=== PATIENT | male | born 1975 | race Caucasian/White ===

== ENCOUNTER 2019-05-08 14:44 | Observation (INO) | payer OTHER ==
[2019-05-08] MEDS ORDERED: MORPHINE SULFATE 4 MG/ML SYRINGE IV STA (15:02)
[2019-05-08] MEDS ORDERED: SODIUM CHLORIDE 0.9% 1,000 ML IV STA (15:02)
--- NOTE | 2019-05-08 15:05 | ED ---
Chest Pain HPI - General Chief Complaint: Chest Pain Stated Complaint: chest pain Time Seen by Provider: 05/08/19 14:53 Source: patient, RN notes reviewed, old records reviewed Mode of arrival: wheelchair Limitations: no limitations - History of Present Illness Initial Comments: This is a 44-year-old male to the ER for evaluation patient presents today for evaluation regards to chest pain left-sided chest pain. Patient has history of prior AK history of high cholesterol history of smoking. Strong family family history of heart disease. Patient does take blood pressure medication that I swelling over the lower extremity. No recent travel history sick contacts. Significant shortness of breath especially with exertion MD Complaint: chest pain (L side, L shoulder) -: days(s) Onset: during rest Pain Location: left chest Pain Radiation: LUE Severity: mild Severity scale (1-10): 3 Quality: aching Consistency: intermittent Improves With: nothing Worsens With: exertion, inspiration Anginal Symptoms: diaphoresis, dyspnea Treatments Prior to Arrival: none - Related Data Home Medications Medication Instructions Recorded Confirmed Albuterol Sulfate [Proair Hfa] 2 puff INHALATION RT-Q6H PRN 05/08/19 05/08/19 Atorvastatin [Lipitor] 40 mg PO HS 05/08/19 05/08/19 Baclofen [Lioresal] 10 mg PO HS PRN 05/08/19 05/08/19 Cholecalciferol (Vitamin D3) 2,000 unit PO HS 05/08/19 05/08/19 [Vitamin D3] Elviteg/Cob/Emtri/Tenof Alafen 1 tab PO HS 05/08/19 05/08/19 [Genvoya Tablet] Furosemide [Lasix] 40 mg PO DAILY 05/08/19 05/08/19 Gabapentin 800 mg PO HS 05/08/19 05/08/19 Gemfibrozil [Lopid] 600 mg PO HS 05/08/19 05/08/19 Ibuprofen [Motrin] 800 mg PO TID PRN 05/08/19 05/08/19 LORazepam [Ativan] 1 mg PO HS 05/08/19 05/08/19 Loratadine 10 mg PO DAILY PRN 05/08/19 05/08/19 Morphine Sulfate [Ms Contin] 120 mg PO HS 05/08/19 05/08/19 [employer] Fatty Acids/Fish Oil [Fish 1 cap PO HS 05/08/19 05/08/19 Oil 1,000 mg Softgel] Omeprazole 40 mg PO QAM 05/08/19 05/08/19 QUEtiapine [SEROquel] 100 mg PO HS 05/08/19 05/08/19 QUEtiapine [SEROquel] 400 mg PO HS 05/08/19 05/08/19 Ranitidine HCl 150 mg PO HS PRN 05/08/19 05/08/19 Sucralfate [Carafate] 1 gm PO DAILY PRN 05/08/19 05/08/19 Sulfamethox-Tmp 800-160Mg [Bactrim 1 tab PO Q12HR PRN 05/08/19 05/08/19 DS 800-160 mg] Varenicline [Chantix Starter Pack] 0.5 mg PO BID 05/08/19 05/08/19 traZODone HCL 300 mg PO HS 05/08/19 05/08/19 Allergies Allergy/AdvReac Type Severity Reaction Status Date / Time bee venom protein (honey bee) Allergy Anaphylaxis Verified 05/08/19 15:43 vancomycin Allergy Rash/Hives Verified 05/08/19 15:43 naloxegol [From Movantik] AdvReac Nausea & Verified 05/08/19 15:43 Vomiting & Diarrhea Review of Systems ROS Statement: Those systems with pertinent positive or pertinent negative responses have been documented in the HPI. ROS Other: All systems not noted in ROS Statement are negative. EKG Findings - EKG Comments: EKG Findings:: EKG shows sinus rhythm rate of 91, VA 162, QRS 90, QTc 460 Past Medical History Past Medical History: Coronary Artery Disease (CAD), Cancer, COPD, Myocardial Infarction ([place]) Additional Past Medical History / Comment(s): HIV, testicle cancer History of Any Multi-Drug Resistant Organisms: MRSA Date of last positivie culture/infection: 2008 MDRO Source:: groin Past Surgical History: Back Surgery, Heart Catheterization, Orthopedic Surgery Additional Past Surgical History / Comment(s): rt knee, lt testicle removed. Past Psychological History: Bipolar, PTSD Smoking Status: Current every day smoker Past Alcohol Use History: None Reported Past Drug Use History: None Reported General Exam Limitations: no limitations General appearance: alert, in no apparent distress, anxious Head exam: Present: atraumatic, normocephalic, normal inspection Eye exam: Present: normal appearance, PERRL, EOMI. Absent: scleral icterus, conjunctival injection, periorbital swelling ENT exam: Present: normal exam, mucous membranes moist Neck exam: Present: normal inspection. Absent: tenderness, meningismus, lymphadenopathy Respiratory exam: Present: normal lung sounds bilaterally. Absent: respiratory distress, wheezes, rales, rhonchi, stridor Cardiovascular Exam: Present: regular rate, normal rhythm, normal heart sounds. Absent: systolic murmur, diastolic murmur, rubs, gallop, clicks GI/Abdominal exam: Present: soft, normal bowel sounds. Absent: distended, tenderness, guarding, rebound, rigid Extremities exam: Present: normal inspection, full ROM, normal capillary refill. Absent: tenderness, pedal edema, joint swelling, calf tenderness Back exam: Present: normal inspection Neurological exam: Present: alert, oriented X3, CN II-XII intact Psychiatric exam: Present: normal affect, normal mood Skin exam: Present: warm, dry, intact, normal color. Absent: rash Course Vital Signs 05/08/19 05/08/19 14:46 16:26 Temperature 98.3 F Pulse Rate 90 75 Respiratory 20 18 Rate Blood Pressure 138/86 109/73 O2 Sat by Pulse 99 95 Oximetry - Reevaluation(s) Reevaluation #1: 05/08/19 16:44 Medical records reviewed Reevaluation #2: 05/08/19 16:44 Still with chest pain - Consultations Consultation #1: Spoke with Dr. Styles regarding admission, he is agreeable Chest Pain MDM - MDM 44 male the ER for chest pain history of heart disease history of AK and AK in his father as well as history of high cholesterol high blood pressure. Patient be admitted for cardiac observation Critical Care Time Critical Care Time: Yes Total Critical Care Time: 31 Disposition Clinical Impression: Chest pain Disposition: ADMITTED IP TO THIS HOSP Condition: Undetermined Instructions (If sedation given, give patient instructions): Chest Pain (ED) Is patient prescribed a controlled substance at d/c from ED?: No Referrals: Nelida Robles NPC [Primary Care Provider] - 1-2 days
[2019-05-08 15:27] LABS: Basophils # (A) 0.1 k/uL (0-0.2); Basophils % (A) 1 %; Eosinophils # (A) 0.1 k/uL (0-0.7); Eosinophils % (A) 1 %; HCT 43.8 % (39.0-53.0); HGB 14.3 gm/dL (13.0-17.5); Lymphocytes # (A) 3.6 k/uL (1.0-4.8); Lymphocytes % (A) 34 %; MCH 30.9 pg (25.0-35.0); MCHC 32.6 g/dL (31.0-37.0); Mean Platelet Volume 6.4; Monocytes # (A) 0.4 k/uL (0-1.0); Monocytes % (A) 4 %; Neutrophils % (A) 57 %; Platelet Count 272 k/uL (150-450); RBC 4.61 m/uL (4.30-5.90); RDW 12.1 % (11.5-15.5); WBC 10.5 k/uL (3.8-10.6)
[2019-05-08 15:35] LABS: ALT 27 U/L (21-72); AST 22 U/L (17-59); African American GFR (CKD) >90 (>60 ml/min/1.73 sqM); Albumin 4.4 g/dL (3.5-5.0); Alkaline Phosphatase 100 U/L (38-126); Anion Gap 10 mmol/L; Blood Urea Nitrogen 13 mg/dL (9-20); Calcium 9.5 mg/dL (8.4-10.2); Carbon Dioxide 28 mmol/L (22-30); Chloride 101 mmol/L (98-107); Glucose 103 mg/dL (74-99); Potassium 3.7 mmol/L (3.5-5.1); Sodium 139 mmol/L (137-145); Total Bilirubin 0.4 mg/dL (0.2-1.3); Total Protein 7.4 g/dL (6.3-8.2)
[2019-05-08 15:40] LABS: D-Dimer 0.43 mg/L FEU (<0.60); INR 0.9 (<1.2); Partial Thromboplastin Time 25.2 sec (22.0-30.0); Prothrombin Time 9.7 sec (9.0-12.0)
--- NOTE | 2019-05-08 15:52 | XR ---
EXAMINATION TYPE: XR chest 2V DATE OF EXAM: 05/08/2019 COMPARISON: NONE HISTORY: Chest pain TECHNIQUE: Frontal and lateral views of the chest are obtained. FINDINGS: There is no focal air space opacity, pleural effusion, or pneumothorax seen. Slight pulmo nary hyperinflation could relate to underlying COPD. Correlate with pulmonary function tests. The car diac silhouette size is within normal limits. The osseous structures are intact. IMPRESSION: No acute cardiopulmonary process.
[2019-05-08] MEDS ORDERED: ASPIRIN 81 MG PO STA (16:43)
[2019-05-08] MEDS ORDERED: HEPARIN SODIUM,PORCINE 5,000 UNIT/ML 1 ML VIAL IV PRN (16:43)
[2019-05-08] MEDS ORDERED: NITROGLYCERIN SL TABS 0.4 MG TAB SUBLINGUAL PRN (16:43)
[2019-05-08] MEDS ORDERED: HEPARIN SODIUM,PORCINE 5,000 UNIT/ML 1 ML VIAL IV ONE (16:43)
[2019-05-08] MEDS ORDERED: HEPARIN SOD,PORK IN 0.45% NACL 25,000 UNIT in 0.45% NACL 1 250ML.BAG IV SCH (16:45)
[2019-05-08] MEDS ORDERED: MORPHINE SULFATE 4 MG/ML SYRINGE IVP STA (17:21)
[2019-05-08] MEDS: MORPHINE SULFATE 4 MG/ML SYRINGE IVP PRN (21:47)
[2019-05-08] MEDS ORDERED: ALBUTEROL NEBULIZED 2.5 MG/3 ML INHALATION PRN (22:06)
[2019-05-08] MEDS ORDERED: SULFAMETHOX-TMP 800-160MG 1 EACH TAB PO PRN (22:06)
[2019-05-08] MEDS ORDERED: FAMOTIDINE 20 MG TAB PO PRN (22:06)
[2019-05-08] MEDS ORDERED: SUCRALFATE 1 GM TAB PO PRN (22:06)
[2019-05-08] MEDS ORDERED: IBUPROFEN 800 MG TAB PO PRN (22:06)
[2019-05-08] MEDS ORDERED: LORATADINE 10 MG TAB PO PRN (22:06)
[2019-05-08] MEDS ORDERED: BACLOFEN 10 MG TAB PO PRN (22:06)
--- NOTE | 2019-05-08 22:51 | HP ---
HISTORY AND PHYSICAL CHIEF COMPLAINT: Chest pain. HISTORY OF PRESENT ILLNESS: This 44-year-old gentleman with a past medical history of multiple medical problems, including CAD at the age of 32, had a cardiac catheterization in [place], history of CHF, COPD, hyperlipidemia, history of myocardial infarction, history of HIV, testicular cancer, history of neuropathy, history of MRSA, history of cardiac catheterization, history of bipolar, PTSD, history of nicotine dependence, being followed by a primary physician and Nelida Robles in the outpatient setting, was having chest pains in the anterior part of the chest which were radiating to the left shoulder as well as left arm, and the patient came to [facility] and was admitted for further evaluation and treatment. EKG showed some ST-T changes. Otherwise, there is no history of any radiation of the pain elsewhere. No history of associated symptoms except some shortness of breath with exertion. The patient also has a history of hypercholesteremia, indicating possibly familial hypercholesterolemia. Patient has extensive family history of coronary artery disease, also. There is no history of any fever, rigor or chills at this time. PAST MEDICAL HISTORY: 1. CAD. 2. History of CHF. 3. COPD. 4. Myocardial infarction. 5. HIV. 6. Testicular cancer. 7. History of neuropathy. HOME MEDICATIONS: 1. MS Contin 120 mg each morning. 2. Ranitidine 150 mg at bedtime p.r.n. 3. Omeprazole 40 mg each morning. 4. Fish oil at bedtime. 5. Motrin 800 mg t.i.d. p.r.n. 6. Lasix 40 mg p.o. daily. 7. Lioresal 10 mg at bedtime p.r.n. 8. ProAir 2 puffs q.6 p.r.n. 9. Trazodone 300 mg p.o. at bedtime. 10.Genvoya 1 tablet p.o. at bedtime. 11.Vitamin D3 2000 at bedtime. 12.Bactrim DS one p.o. b.i.d. 13.Carafate 1 gram daily p.r.n. 14.Seroquel 400 mg at bedtime. 15.Seroquel 100 mg at bedtime. 16.Loratadine 10 mg daily p.r.n. 17.Ativan 1 mg at bedtime. 18.Chantix 0.5 mg b.i.d. 19.Lopid 600 mg at bedtime. 20.Gabapentin 400 mg at bedtime. 21.Lipitor 40 mg at bedtime. 22.MS-IR. ALLERGIES: 1. BEE VENOM. 2. VANCOMYCIN. 3. NALOXEGOL. SOCIAL HISTORY: History of smoking. No history of alcohol intake. FAMILY HISTORY: History of CHF, CAD, CVA, TIA. REVIEW OF SYSTEMS: ENT: No diminished hearing. No diminished vision. CARDIOVASCULAR SYSTEM: As mentioned earlier. RESPIRATORY SYSTEM: As mentioned earlier. GI: No nausea, vomiting. : No dysuria or retention. NERVOUS SYSTEM: No numbness, weakness. ALLERGY/IMMUNOLOGY: No asthma, hayfever. MUSCULOSKELETAL: As mentioned earlier. HEMATOLOGY/ONCOLOGY: As mentioned earlier. ENDOCRINE: No history of diabetes, hypothyroidism. CONSTITUTIONAL: As mentioned earlier. DERMATOLOGY: Negative. RHEUMATOLOGY: Negative. PSYCHIATRY: As mentioned earlier. PHYSICAL EXAMINATION: Patient alert and oriented x3. Pulse 70, blood pressure 119/76, respiration 18, temperature 98.3, pulse ox 97% on room air. HEENT: Conjunctivae normal. Oral mucosa moist. NECK: No jugular venous distention. No carotid bruit. No lymph node enlargement. CARDIOVASCULAR SYSTEM: S1, S2 muffled. No S3. No S4. RESPIRATORY SYSTEM: Breath sounds diminished at the bases. No rhonchi. No crackles. ABDOMEN: Soft, obese, non-tender. No mass palpable. LEGS: Minimal edema. NERVOUS SYSTEM: Higher functions as mentioned earlier. Moves all 4 limbs. No focal motor or sensory deficit. LYMPHATICS: No lymph node palpable in neck, axillae or groin. SKIN: No ulcer, rash, bleeding. JOINTS: No active deforming arthropathy. LABS: CBC within normal limits. APTT 33. Glucose is 103. ASSESSMENT: 1. Chest pain for evaluation. Rule out acute myocardial infarction or unstable angina. 2. History of myocardial infarction and cardiac catheterization in the past. 3. History of congestive heart failure; ejection fraction unknown. 4. History of chronic obstructive pulmonary disease. 5. Hyperlipidemia. 6. Myocardial infarction. 7. History of human immunodeficiency virus. 8. History of testicular cancer. 9. History of peripheral neuropathy. 10.History of methicillin-resistant Staphylococcus aeruginosa. 11.History of degenerative joint disease. 12.History of bipolar, post-traumatic stress disorder. 13.History of continued ongoing nicotine dependence. 14.Obesity with body mass index 37.2. RECOMMENDATIONS AND DISCUSSION: In this 44-year-old gentleman who presented with multiple medical issues, at this time I recommend to continue current medications, continue with symptomatic treatment. Otherwise, unstable angina protocol. Resume the home medications. Cardiology consultation. Two-D echo with Doppler. Guarded prognosis because of multiple complex medical issues. Lipid panel also will be checked. Prognosis guarded. Discussed with the patient, who understands and agrees. Further recommendations to follow. A copy of this dictation is being forwarded to Nelida Robles, who is following the patient in the outpatient setting. MMODL / IJN: [id number] /
[2019-05-08] MEDS ORDERED: Elviteg/Cob/Emtri/Tenof Alafen [Genvoya Tablet] PO SCH (23:16)
[2019-05-08] MEDS ORDERED: QUEtiapine 400 MG TAB PO SCH (23:18)
[2019-05-08] MEDS ORDERED: QUEtiapine 100 MG TAB PO SCH (23:18)
[2019-05-08] MEDS ORDERED: GABAPENTIN 400 MG CAP PO SCH (23:30)
[2019-05-08] MEDS ORDERED: traZODone HCL 100 MG TAB PO SCH (23:30)
[2019-05-08] MEDS ORDERED: LORazepam 1 MG TAB PO SCH (23:30)
[2019-05-08] MEDS ORDERED: FENOFIBRATE 160 MG TAB PO SCH (23:30)
[2019-05-08] MEDS: METOPROLOL TARTRATE 25 MG TAB PO SCH (23:42)
[2019-05-09 07:26] LABS: Basophils # (A) 0.1 k/uL (0-0.2); Basophils % (A) 1 %; Eosinophils # (A) 0.1 k/uL (0-0.7); Eosinophils % (A) 2 %; HCT 41.8 % (39.0-53.0); HGB 13.6 gm/dL (13.0-17.5); Lymphocytes # (A) 3.6 k/uL (1.0-4.8); Lymphocytes % (A) 52 %; MCHC 32.4 g/dL (31.0-37.0); MCV 95.5 fL (80.0-100.0); Mean Platelet Volume 6.4; Monocytes # (A) 0.4 k/uL (0-1.0); Monocytes % (A) 5 %; Neutrophils # (A) 2.5 k/uL (1.3-7.7); Neutrophils % (A) 36 %; Platelet Count 240 k/uL (150-450); RBC 4.38 m/uL (4.30-5.90); RDW 12.1 % (11.5-15.5); WBC 6.8 k/uL (3.8-10.6)
[2019-05-09] MEDS ORDERED: PANTOPRAZOLE 40 MG TABLET PO SCH (07:30)
[2019-05-09 07:50] LABS: African American GFR (CKD) >90 (>60 ml/min/1.73 sqM); Anion Gap 6 mmol/L; Blood Urea Nitrogen 13 mg/dL (9-20); Carbon Dioxide 23 mmol/L (22-30); Chloride 110 mmol/L (98-107); Cholesterol 154 mg/dL (<200); Glucose 87 mg/dL (74-99); HDL Cholesterol 29 mg/dL (40-60); LDL Cholesterol,Calculated 98 mg/dL (0-99); Potassium 4.4 mmol/L (3.5-5.1); Sodium 139 mmol/L (137-145); Triglycerides 135 mg/dL (<150)
[2019-05-09 07:53] VITALS: RESP 18
[2019-05-09] MEDS ORDERED: ATORVASTATIN 80 MG TAB PO SCH (09:00)
[2019-05-09] MEDS ORDERED: ASPIRIN 325 MG TAB PO SCH (09:00)
[2019-05-09] MEDS ORDERED: FUROSEMIDE 40 MG TAB PO SCH (09:00)
[2019-05-09] MEDS ORDERED: VARENICLINE 0.5 MG TAB PO SCH (09:00)
[2019-05-09] MEDS ORDERED: MORPHINE SULFATE ER 30 MG TABLET PO SCH (09:00)
--- NOTE | 2019-05-09 10:04 | P.CRDCN ---
History of Present Illness History of present illness: This is a 44-year-old male past medical history significant for coronary artery disease in the setting of an [facility] per the patient while living in [place] in 2007. He is unsure of the exact details and unsure if he has stents or how many. He also has HIV, COPD, history of testicular cancer, bipolar, PTSD, chronic pain and chronic nicotine dependence. 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 We have been asked to see him in consultation for chest pain. He states yesterday while driving his other to a Dr. appointment he started feeling a pain in his chest that felt like someone was pulling his body at his shoulders. There was no radiation to the arm, back, neck or jaw. He continues to have ongoing chest discomfort that has been constant since it started with no alleviating or aggravating factors. He also has intermittent shortness of breath, nausea and dizziness like the room is spinning. He has had vertigo in the past and states this feels different. EKG reveals sinus mechanism heart rate 91. Nonspecific changes. Chest x-ray negative for an acute cardiopulmonary process. Laboratory data reviewed, CBC unremarkable, d-dimer 0.43, sodium 139, potassium 4.4, creatinine 0.78, magnesium 2.0, cardiac enzymes negative 3, LDL 98. Current daily medications include atorvastatin 40 mg daily, Lopid 600 mg daily, Lasix 40 mg daily, morphine, ranitidine, omeprazole, Motrin, baclofen, albuterol, trazodone, gingival area, Bactrim, Carafate, Seroquel, loratadine, Ativan and gabapentin. At the time of my exam: CONSTITUTIONAL: Denies fever. Denies chills. EYES: Denies blurred vision. Denies vision changes. Denies eye pain. EARS, NOSE, MOUTH & THROAT: Denies headache. Denies sore throat. Denies ear pain. CARDIOVASCULAR: Complains of chest pain. Denies shortness of breath. Denies orthopnea. Denies PND. Denies palpitations. RESPIRATORY: Denies cough. GASTROINTESTINAL: Denies abdominal pain. Denies diarrhea. Denies constipation. Denies nausea. Denies vomiting. MUSCULOSKELETAL: Denies myalgias. INTEGUMENTARY: Denies pruitis. Denies rash. NEUROLOGIC: Denies numbness. Denies tingling. Denies weakness. PSYCHIATRIC: Denies anxiety. Denies depression. ENDOCRINE: Denies fatigue. Denies weight change. Denies polydipsia. Denies polyurina. GENITOURINARY: Denies burning, hematuria or urgency with micturation. HEMATOLOGIC: Denies history of anemia. Denies bleeding. Blood pressure 121/75 heart rate 70 afebrile maintaining oxygen saturation on room air GENERAL: This is a 44-year-old male in no apparent distress at the time of my examination. HEENT: Head is atraumatic, normocephalic. Pupils are equal, round. Sclerae anicteric. Conjunctivae are clear. Mucous membranes of the mouth are moist. Neck is supple. There is no jugular venous distention. No carotid bruit is heard. LUNGS: Clear to auscultation no wheezes, rales or rhonchi. No chest wall tenderness is noted on palpation or with deep breathing. HEART: Regular rate and rhythm without murmurs, rubs or gallops. S1 and S2 heard. ABDOMEN: Soft, nontender. Bowel sounds are heard. No organomegaly noted. EXTREMITIES: No evidence of peripheral edema and no calf tenderness noted. VASCULAR: Radial and dorsalis pedis pulses palpated, no evidence of clubbing. NEUROLOGIC: Patient is awake, alert and oriented x3. ASSESSMENT Chest pain, atypical for angina. An acute coronary event has been ruled out. Dyslipidemia HIV COPD Chronic nicotine dependence PLAN An acute coronary event has been ruled out. Echocardiogram has been obtained and will be reviewed. Proceed with stress echocardiogram to assess for stress induced ischemia. If stress test is normal he may be discharged from a cardiac perspective. Thank you kindly for this consultation. Nurse Practitioner note has been reviewed, I agree with a documented findings and plan of care. Patient was seen and examined. Past Medical History Past Medical History: Coronary Artery Disease (CAD), Cancer, Heart Failure, COPD, Hyperlipidemia, Myocardial Infarction ([place]) Additional Past Medical History / Comment(s): HIV, testicle cancer,NEUROPATHY Last Myocardial Infarction Date:: 2007 History of Any Multi-Drug Resistant Organisms: MRSA Date of last positivie culture/infection: 2008 MDRO Source:: groin Past Surgical History: Back Surgery, Heart Catheterization, Orthopedic Surgery Additional Past Surgical History / Comment(s): rt knee, lt testicle removed. Past Anesthesia/Blood Transfusion Reactions: No Reported Reaction Past Psychological History: Bipolar, PTSD Smoking Status: Current every day smoker Past Alcohol Use History: None Reported Past Drug Use History: None Reported - Past Family History Father Family Medical History: Congestive Heart Failure (CHF), Coronary Artery Disease (CAD), CVA/TIA Mother Family Medical History: Cancer, Congestive Heart Failure (CHF), Coronary Artery Disease (CAD) Medications and Allergies Home Medications Medication Instructions Recorded Confirmed Type Albuterol Sulfate [Proair Hfa] 2 puff INHALATION RT-Q6H PRN 05/08/19 05/08/19 History Atorvastatin [Lipitor] 40 mg PO HS 05/08/19 05/08/19 History Baclofen [Lioresal] 10 mg PO HS PRN 05/08/19 05/08/19 History Cholecalciferol (Vitamin D3) 2,000 unit PO HS 05/08/19 05/08/19 History [Vitamin D3] Elviteg/Cob/Emtri/Tenof Alafen 1 tab PO HS 05/08/19 05/08/19 History [Genvoya Tablet] Furosemide [Lasix] 40 mg PO DAILY 05/08/19 05/08/19 History Gabapentin 800 mg PO HS 05/08/19 05/08/19 History Gemfibrozil [Lopid] 600 mg PO HS 05/08/19 05/08/19 History Ibuprofen [Motrin] 800 mg PO TID PRN 05/08/19 05/08/19 History LORazepam [Ativan] 1 mg PO HS 05/08/19 05/08/19 History Loratadine 10 mg PO DAILY PRN 05/08/19 05/08/19 History Morphine Sulfate Ir [MSIR] 120 mg PO DAILY 05/08/19 05/08/19 History [employer]-3 Fatty Acids/Fish Oil [Fish 1 cap PO HS 05/08/19 05/08/19 History Oil 1,000 mg Softgel] Omeprazole 40 mg PO QAM 05/08/19 05/08/19 History QUEtiapine [SEROquel] 100 mg PO HS 05/08/19 05/08/19 History QUEtiapine [SEROquel] 400 mg PO HS 05/08/19 05/08/19 History Ranitidine HCl 150 mg PO HS PRN 05/08/19 05/08/19 History Sucralfate [Carafate] 1 gm PO DAILY PRN 05/08/19 05/08/19 History Sulfamethox-Tmp 800-160Mg [Bactrim 1 tab PO Q12HR PRN 05/08/19 05/08/19 History DS 800-160 mg] Varenicline [Chantix Starter Pack] 0.5 mg PO BID 05/08/19 05/08/19 History traZODone HCL 300 mg PO HS 05/08/19 05/08/19 History Allergies Allergy/AdvReac Type Severity Reaction Status Date / Time bee venom protein (honey bee) Allergy Anaphylaxis Verified 05/08/19 15:43 vancomycin Allergy Rash/Hives Verified 05/08/19 15:43 naloxegol [From Movantik] AdvReac Nausea & Verified 05/08/19 15:43 Vomiting & Diarrhea Physical Exam Vitals: Vital Signs Temp Pulse Pulse Resp BP BP Pulse Ox 05/09/19 08:15 70 18 05/09/19 07:51 98.5 F 69 18 121/75 97 05/09/19 04:00 98.2 F 55 L 16 117/70 98 05/09/19 00:00 66 16 05/08/19 23:27 98.0 F 66 16 113/63 97 05/08/19 20:00 70 18 05/08/19 18:09 98.3 F 70 18 119/76 97 05/08/19 16:26 75 18 109/73 95 05/08/19 14:46 98.3 F 90 20 138/86 99 Intake and Output 05/08/19 05/09/19 05/09/19 22:59 06:59 14:59 Intake Total 66.793 Balance 66.793 Intake: Intake, IV Titration 66.793 Amount Heparin Sod,Pork in 0.45% 66.793 NaCl 25,000 unit In 0.45 % NaCl 1 250ml.bag @ 7.2 UNITS/KG/HR 9.994 mls/hr IV .Q24H [facility] Rx#: [id number] Other: # Voids 1 Results 05/09/19 07:02 05/09/19 07:02 Cardiac Enzymes 05/08/19 05/08/19 05/08/19 Range/Units 15:20 15:20 21:13 AST 22 (17-59) U/L Troponin I <0.012 <0.012 (0.000-0.034) ng/mL 05/09/19 Range/Units 03:11 AST (17-59) U/L Troponin I <0.012 (0.000-0.034) ng/mL Coagulation 05/08/19 05/08/19 05/08/19 Range/Units 15:20 21:13 23:21 PT 9.7 (9.0-12.0) sec APTT 25.2 33.0 H 31.0 H (22.0-30.0) sec 05/09/19 Range/Units 07:02 PT (9.0-12.0) sec APTT 38.5 H (22.0-30.0) sec Lipids 05/09/19 Range/Units 07:02 Triglycerides 135 (<150) mg/dL Cholesterol 154 (<200) mg/dL HDL Cholesterol 29 L (40-60) mg/dL CBC 05/08/19 05/09/19 Range/Units 15:20 07:02 WBC 10.5 6.8 (3.8-10.6) k/uL RBC 4.61 4.38 (4.30-5.90) m/uL Hgb 14.3 13.6 (13.0-17.5) gm/dL Hct 43.8 41.8 (39.0-53.0) % Plt Count 272 240 (150-450) k/uL Comprehensive Metabolic Panel 05/08/19 05/09/19 Range/Units 15:20 07:02 Sodium 139 139 (137-145) mmol/L Potassium 3.7 4.4 (3.5-5.1) mmol/L Chloride 101 110 H (98-107) mmol/L Carbon Dioxide 28 23 (22-30) mmol/L BUN 13 13 (9-20) mg/dL Creatinine 0.92 0.78 (0.66-1.25) mg/dL Glucose 103 H 87 (74-99) mg/dL Calcium 9.5 9.0 (8.4-10.2) mg/dL AST 22 (17-59) U/L ALT 27 (21-72) U/L Alkaline Phosphatase 100 (38-126) U/L Total Protein 7.4 (6.3-8.2) g/dL Albumin 4.4 (3.5-5.0) g/dL Current Medications Generic Name Dose Route Start Last Admin Trade Name Freq PRN Reason Stop Dose Admin Albuterol Sulfate 2.5 mg 05/08/19 22:06 Ventolin Nebulized INHALATION RT-Q6H PRN Shortness Of Breath Aspirin 325 mg 05/09/19 09:00 Aspirin PO DAILY [facility] Atorvastatin Calcium 80 mg 05/09/19 09:00 Lipitor PO DAILY [facility] Baclofen 10 mg 05/08/19 22:06 05/08/19 23:55 Lioresal PO 10 mg HS PRN Administration Muscle Pain Cholecalciferol 2,000 unit 05/09/19 21:00 Vitamin D3 (25 Mcg = 1000 Iu) PO [facility] Famotidine 20 mg 05/08/19 22:06 05/08/19 23:55 Pepcid PO 20 mg HS PRN Administration Heartburn Fenofibrate 160 mg 05/08/19 23:30 05/08/19 23:55 Lofibra PO 160 mg HS [facility] Administration Furosemide 40 mg 05/09/19 09:00 Lasix PO DAILY [facility] Gabapentin 800 mg 05/08/19 23:30 05/08/19 23:56 Neurontin PO 800 mg HS [facility] Administration Heparin Sodium (Porcine) 0 unit 05/08/19 16:43 05/09/19 00:00 Heparin IV 4,000 unit Q6HR PRN Administration Low PTT Protocol Ibuprofen 800 mg 05/08/19 22:06 Motrin PO TID PRN Pain Loratadine 10 mg 05/08/19 22:06 Claritin PO DAILY PRN Allergy Symptoms Lorazepam 1 mg 05/08/19 23:30 05/08/19 23:56 Ativan PO 1 mg HS [facility] Administration Metoprolol Tartrate 25 mg 05/08/19 21:00 05/08/19 23:42 Lopressor PO Not Given BID [facility] Morphine Sulfate 4 mg 05/08/19 17:21 05/08/19 21:47 Morphine Sulfate (Inj) IVP 4 mg Q4HR PRN Administration Pain Nitroglycerin 0.4 mg 05/08/19 16:43 Nitrostat SUBLINGUAL Q5M PRN Chest Pain Elviteg/Cob/Emtri/ 1 tab 05/08/19 23:16 05/08/19 23:54 Tenof Alafen [ PO Not Given Genvoya Tablet] HS [facility] Pantoprazole Sodium 40 mg 05/09/19 07:30 Protonix PO QAM@0730 [facility] Quetiapine Fumarate 100 mg 05/08/19 23:18 05/08/19 23:55 Seroquel PO 100 mg HS [facility] Administration Quetiapine Fumarate 400 mg 05/08/19 23:18 05/08/19 23:55 Seroquel PO 400 mg HS [facility] Administration Sucralfate 1 gm 05/08/19 22:06 Carafate PO DAILY PRN STOMACH PAIN Trazodone HCl 300 mg 05/08/19 23:30 05/08/19 23:56 Desyrel PO 300 mg HS [facility] Administration Varenicline 0.5 mg 05/09/19 09:00 Chantix PO BID [facility] Intake and Output 05/08/19 05/09/19 05/09/19 22:59 06:59 14:59 Intake Total 66.793 Balance 66.793 Intake: Intake, IV Titration 66.793 Amount Heparin Sod,Pork in 0.45% 66.793 NaCl 25,000 unit In 0.45 % NaCl 1 250ml.bag @ 7.2 UNITS/KG/HR 9.994 mls/hr IV .Q24H [facility] Rx#: [id number] Other: # Voids 1 05/09/19 07:02 05/09/19 07:02
[2019-05-09] MEDS ORDERED: DOBUTamine DRIP for NUC MED 500 MG in DEXTROSE/WATER 1 250ML.BAG IV ONE (11:25)
[2019-05-09] MEDS: METOPROLOL TARTRATE 25 MG TAB PO SCH (12:30)
[2019-05-09] MEDS: MORPHINE SULFATE 4 MG/ML SYRINGE IVP PRN (12:30)
[2019-05-09 12:48] VITALS: BP 133/84; PULSE 80; TEMP 98.3
--- NOTE | 2019-05-09 13:00 | ECHOF ---
Referral Reason:chf MEASUREMENTS -------- HEIGHT: 182.9 cm WEIGHT: 138.8 kg BP: 117/60 RVIDd: 3.5 cm (< 3.3) IVSd: 1.4 cm (0.6 - 1.1) LVIDd: 3.9 cm (3.9 - 5.3) LVPWd: 1.6 cm (0.6 - 1.1) IVSs: 1.5 cm LVIDs: 3.9 cm LVPWs: 1.4 cm LA Diam: 3.2 cm (2.7 - 3.8) Ao Diam: 3.4 cm (2.0 - 3.7) AV Cusp: 2.4 cm (1.5 - 2.6) LA Diam: 3.2 cm (2.7 - 3.8) MV EXCURSION: 15.618 mm (> 18.000) MV EF SLOPE: 77 mm/s (70 - 150) EPSS: 1.0 cm MV E Manjit: 0.62 m/s MV DecT: 210 ms MV A Manjit: 0.63 m/s MV E/A Ratio: 0.98 AV maxP.46 mmHg AV meanP.33 mmHg TAPSE: 23.43 mm FINDINGS -------- Sinus rhythm. Morbid Obesity This was a techncally difficult study with suboptimal views, , Lumason utilized for enhancement of im ages. There is mild concentric left ventricular hypertrophy. Overall left ventricular systolic function i s low-normal with, an EF between 50 - 55 %. The diastolic filling pattern is normal for the age of the patient 9.70. The right ventricle is normal in size. The left atrial size is normal. Normal LA size by volume 22+/-6 ml/m2. The right atrial size is normal. There is mild aortic regurgitation. Peak/mean gradient across the Aortic Valve is 12.46mmHg / 6.33m mHg. Functionally bicuspid aortic valve. Mild mitral annular calcification present. Mild mitral regurgitation is present. Mild tricuspid regurgitation present. Right ventricular systolic pressure is normal at < 35 mmHg. There is no evidence of pulmonary hypertension. There is no pulmonic regurgitation present. The aortic root size is normal. There is no pericardial effusion. CONCLUSIONS -------- 1. Sinus rhythm. 2. Morbid Obesity 3. This was a techncally difficult study with suboptimal views, , Lumason utilized for enhancement of images. 4. There is mild concentric left ventricular hypertrophy. 5. Overall left ventricular systolic function is low-normal with, an EF between 50 - 55 %. 6. The diastolic filling pattern is normal for the age of the patient 9.70 7. The right ventricle is normal in size. 8. The left atrial size is normal. 9. Normal LA size by volume 22+/-6 ml/m2. 10. The right atrial size is normal. 11. There is mild aortic regurgitation. 12. Peak/mean gradient across the Aortic Valve is 12.46mmHg / 6.33mmHg. 13. Functionally bicuspid aortic valve. 14. Mild mitral annular calcification present. 15. Mild mitral regurgitation is present. 16. Mild tricuspid regurgitation present. 17. Right ventricular systolic pressure is normal at < 35 mmHg. 18. There is no evidence of pulmonary hypertension. 19. There is no pulmonic regurgitation present. 20. The aortic root size is normal. 21. There is no pericardial effusion. HORSERADISH MAKER: Dacai Mcfarland RDCS
--- NOTE | 2019-05-09 15:03 | ECHOS ---
STRESS ECHOCARDIOGRAM INDICATIONS: Chest pain. BASELINE HEART RATE: 71 BASELINE BLOOD PRESSURE: 96/51 MAXIMUM HEART RATE: 149 MAXIMUM BLOOD PRESSURE: 117/44 85% MPHR: 151 100% MPHR: 178 CLINICAL INFORMATION: Chest pain. A dobutamine echocardiographic study was performed. A peak heart rate of 149 was achieved. Maximum blood pressure of 117/44 mmHg was noted. The resting EKG shows normal sinus rhythm with normal NV interval and QRS duration and normal ST-T waves no ST-segment depression suggestive of ischemia is noted the baseline echocardiographic images reveals normal left ventricular chamber size with normal left ventricular systolic function. At the peak dose of dobutamine infusion normal increase in the wall thickness and contractility was noted. MMODL / IJN: [id number] /
[2019-05-09] MEDS ORDERED: QUEtiapine 100 MG TAB PO SCH (21:00)
[2019-05-09] MEDS ORDERED: LORazepam 1 MG TAB PO SCH (21:00)
[2019-05-09] MEDS ORDERED: Elviteg/Cob/Emtri/Tenof Alafen [Genvoya Tablet] PO SCH (21:00)
[2019-05-09] MEDS ORDERED: NON FORMULARY DRUG (Omega-3 Fatty Acids/Fish Oil [Fish Oil 1,000 Mg Softgel] 1 CAP) PO SCH (21:00)
[2019-05-09] MEDS ORDERED: CHOLECALCIFEROL 1,000 UNIT TAB PO SCH (21:00)
[2019-05-09] MEDS ORDERED: traZODone HCL 100 MG TAB PO SCH (21:00)
[2019-05-09] MEDS ORDERED: GABAPENTIN 400 MG CAP PO SCH (21:00)
[2019-05-09] MEDS ORDERED: FENOFIBRATE 160 MG TAB PO SCH (21:00)
[2019-05-09] MEDS ORDERED: QUEtiapine 400 MG TAB PO SCH (21:00)
--- NOTE | 2019-05-09 23:40 | DS ---
DISCHARGE SUMMARY DATE OF SERVICE: 05/09/2019. FINAL DIAGNOSIS: 1. Chest pain possibly musculoskeletal, negative stress test. 2. History of myocardial infarction. Cardiac catheterization in the past. 3. History of congestive heart failure, ejection fraction unknown. 4. History of chronic obstructive pulmonary disease. 5. Hyperlipidemia. 6. History of myocardial infarction. 7. History of HIV. 8. History of testicular cancer. 9. History of peripheral neuropathy. 10.History of MRSA. 11.History of degenerative joint disease. 12.History of bipolar PTSD. 13.History of continued ongoing nicotine dependence. 14.Obesity with body mass index of 37.2. DISCHARGE DISPOSITION: The patient being discharged in stable condition with guarded prognosis after clearance from Cardiology. HISTORY OF PRESENT ILLNESS: This 44-year-old gentleman with a past medical history of multiple medical problems being followed by Nelida Robles in the outpatient was admitted with chest pain, myocardial infarction ruled out. Cardiology performed a stress test and the patient being discharged in stable condition. Guarded prognosis. A 2D echo with Doppler was also done. Stress test was reported as normal per staff. Two-D echo showed ejection fraction 50-55 percent. The cholesterol levels are also within normal limits. DISCHARGE ADVICE AND MEDICATIONS: 1. Discharge diet is cardiac diet. 2. Activity limited until followup. 3. Follow up with Nelida Robles in 2-3 days. 4. Follow up with Lilli Baker in 1 week. DISCHARGE MEDICATIONS: 1. Ativan 1 mg p.o. q.h.s. 2. Bactrim DS 1 p.o. b.i.d. 3. Carafate 1 g p.o. daily. 4. Chantix 0.5 mg b.i.d. 5. Fish oil 1 q.h.s. 6. Gabapentin 800 mg q.h.s. 7. Genovoya 1 tab q.h.s. 8. Lasix 40 mg p.o. daily. 9. Lioresal 10 mg q.h.s. p.r.n. 10.Lopid 600 mg q.h.s. 11.Loratadine 10 mg daily p.r.n. 12.Motrin 800 mg t.i.d. p.r.n. 13.MS-IR 120 mg p.o. daily. 14.Omeprazole 40 mg q.a.m. 15.ProAir HFA 2 puffs q.6h p.r.n. 16.Ranitidine 150 mg q.h.s. p.r.n. 17.Seroquel 100 mg q.h.s. and 400 mg q.h.s. 18.Trazodone 300 mg q.h.s. 19.Vitamin D3 2000 q.h.s. Once again, the patient will be discharged in stable condition with guarded prognosis. MMODL / IJN: [id number] /
== END 2019-05-09 14:46 | disposition home or self-care (01) ==
LOC: EC 14:44 → 1SOBS 16:43
PROVIDERS: ADMIT Hospitalist; ATTEND Hospitalist
DX: R07.89 Other chest pain (principal); R61 Generalized hyperhidrosis; E78.00 Pure hypercholesterolemia, unspecified; J44.9 Chronic obstructive pulmonary disease, unspecified; I25.10 Atherosclerotic heart disease of native coronary artery without angina pectoris; F43.10 Post-traumatic stress disorder, unspecified; I50.9 Heart failure, unspecified; G62.9 Polyneuropathy, unspecified; E78.5 Hyperlipidemia, unspecified; M19.90 Unspecified osteoarthritis, unspecified site; E66.9 Obesity, unspecified; Z68.37 Body mass index [BMI] 37.0-37.9, adult; G89.29 Other chronic pain; R11.0 Nausea; R42 Dizziness and giddiness; Z21 Asymptomatic human immunodeficiency virus [HIV] infection status; F17.200 Nicotine dependence, unspecified, uncomplicated; Z79.899 Other long term (current) drug therapy; Z79.891 Long term (current) use of opiate analgesic; Z88.8 Allergy status to other drugs, medicaments and biological substances; Z88.1 Allergy status to other antibiotic agents; Z91.030 Bee allergy status; I25.2 Old myocardial infarction; Z85.47 Personal history of malignant neoplasm of testis; Z90.79 Acquired absence of other genital organ(s); Z86.14 Personal history of Methicillin resistant Staphylococcus aureus infection; Z82.49 Family history of ischemic heart disease and other diseases of the circulatory system; Z82.3 Family history of stroke
CPT/HCPCS: 96366; 96376 ×3; 96361; 96365; 96375; 99291; 36415; 93005; 85379; 83880; 80061; 80053; 80048; 83690; 83735; 84484 ×2; 85025 ×2; 85610; 85730 ×2; 71046; G0378 ×2; C8929; C8930; J1250; J2270 ×2; J1644 ×3; Q9950; 93306; 93351